=== PATIENT | female | born 1985 | race Caucasian/White ===

== ENCOUNTER 2021-11-28 06:39 | Day surgery (SDC) | payer MEDICARE, OTHER ==
[~2021-11-28] VITALS: Ht 162.6 cm; Wt 97.5 kg
[~2021-11-28 06:39] MED LIST: BENZTROPINE1 MG PO; CARBAMAZEPIN200 M1 PO; CLONAZEPAM1 M1 PO; CYCLOBENZAPRINE10 MG PO; CYCLOBENZAPRINE5 MG PO; FLUPHENAZINE10 MG PO; LIPITOR10 M1 PO; OXYBUTYNIN CHLOR5 M1 PO; PROTONIX20 M1 PO; QUETIAPINE FUM200 MG PO; TOPIRAMATE ER50 MG PO; TRAMADOL HCL50 MG PO; ZESTRIL10 M1 PO
[2021-11-28 09:53] VITALS: BP 130/87
== END 2021-11-28 09:59 | disposition home or self-care (01) ==
LOC: ORM 06:39 → PO 06:39 → ORM 07:00
PROVIDERS: ATTEND Physical Medicine & Rehabilitation Pain Medicine
DX: M47.816 Spondylosis without myelopathy or radiculopathy, lumbar region (principal); G89.4 Chronic pain syndrome